=== PATIENT | female | born 1965 | race Hispanic/Latino ===

== ENCOUNTER 2017-10-25 19:09 | Emergency (ER) | payer BC ==
[~2017-10-25] VITALS: Ht 154.9 cm; Wt 84.8 kg
[~2017-10-25 19:09] MED LIST: ASPIR 8181 MG PO; COZAAR100 MG PO; MAXZIDE 75 MG-1 EACH PO
[2017-10-25] MEDS ORDERED: DIATRIZOATE MEGL/DIATRIZOA SOD 30 ML BTL PO ONE (19:56)
[2017-10-25 20:09] LABS: BASOPHILS # (AUTO) 0.1 (0.0-0.1); BASOPHILS % 0.7 % (0.0-1.0); EOSINOPHILS # (AUTO) 0.3 (0.0-0.4); EOSINOPHILS % 3.5 % (0.0-6.0); HEMATOCRIT 39.7 % (34.2-44.1); HEMOGLOBIN 14.3 g/dL (12.0-16.0); LYMPHOCYTES % 24.9 % (18.0-39.1); MEAN CORPUSCULAR HEMOGLOBIN 32.1 pg (28-32); MEAN CORPUSCULAR VOLUME 89.2 fL (81-99); MONOCYTES # (AUTO) 0.4 (0.2-0.8); MONOCYTES % 5.5 % (4.4-11.3); NEUTROPHILS # (AUTO) 5.2 (2.1-6.9); PLATELET COUNT 290 x10e3/uL (140-360); RED BLOOD COUNT 4.45 x10e6/uL (3.6-5.1); RED CELL DISTRIBUTION WIDTH 12.5 % (11.7-14.4)
[2017-10-25 20:10] LABS: BILIRUBIN,URINE NEGATIVE (NEGATIVE); CLARITY,URINE CLEAR (CLEAR); COLOR,URINE YELLOW (YELLOW); KETONES,URINE NEGATIVE (NEGATIVE); LEUKOCYTE ESTERASE ,URINE NEGATIVE (NEGATIVE); NITRITE,URINE NEGATIVE (NEGATIVE); PROTEIN,URINE DIPSTICK NEGATIVE (NEGATIVE); URINE UROBILINOGEN 0.2 mg/dL (0.2 - 1)
[2017-10-25 20:25] LABS: ALANINE AMINOTRANSFERASE 43 IU/L (0-55); ALKALINE PHOSPHATASE 84 IU/L (40-150); AMYLASE 73 U/L (25-125); ANION GAP 14.8 mmol/L (8-16); BLOOD UREA NITROGEN 16 mg/dL (7-26); BUN/CREATININE RATIO 21 (6-25); CALCIUM 10.1 mg/dL (8.4-10.2); CARBON DIOXIDE 27 mmol/L (22-29); CHLORIDE 100 mmol/L (98-107); CREATININE, SERUM 0.75 mg/dL (0.57-1.11); EST GLOMERULAR FILTRATION RATE > 60 ML/MIN (60-); GLUCOSE 129 mg/dL (74-118); LIPASE 36 U/L (8-78); POTASSIUM 3.8 mmol/L (3.5-5.1); SODIUM 138 mmol/L (136-145)
[2017-10-25 20:26] LABS: EPITHELIAL CELLS,URINE FEW /LPF; MUCUS,URINE FEW (RARE); RBC,URINE 0-5 /HPF (0-5); WBC,URINE (MAN) 0-5 /HPF (0-5)
[2017-10-25] MEDS ORDERED: SODIUM CHLORIDE 0.9% 50ML 50 ML ONE (22:27)
[2017-10-25] MEDS ORDERED: IOPAMIDOL 370 MG/ML 200 ML INFUS..BTL INJ ONE (22:27)
--- NOTE | 2017-10-25 22:39 | Diagnostic Imaging Report ---
EXAM: CT Abdomen and Pelvis WITH contrast INDICATION: Abdominal pain, diarrhea COMPARISON: None. TECHNIQUE: Abdomen and pelvis were scanned utilizing a multidetector helical scanner from the lung base to the pubic symphysis after administration of IV contrast. Coronal and sagittal reformations were obtained. Routine protocol was performed. Scan was performed when during portal venous phase. IV CONTRAST: 100 mL of Isovue-370 ORAL CONTRAST: Gastrografin RADIATION DOSE: Total DLP: 775.08 mGy*cm Estimated effective dose: (DLP x 0.015 x size factor) mSv COMPLICATIONS: None FINDINGS: LINES and TUBES: None. LOWER THORAX: Unremarkable HEPATOBILIARY: The liver is diffuse hypodense compared to the spleen, consistent with diffuse hepatic diffuse hepatic steatosis. No focal hepatic lesions. No biliary ductal dilation. GALLBLADDER: No radio-opaque stones or sludge. No wall thickening. SPLEEN: No splenomegaly. PANCREAS: No focal masses or ductal dilatation. ADRENALS: No adrenal nodules KIDNEYS/URETERS: Kidneys enhance symmetrically. No hydronephrosis. No cystic or solid mass lesions. No stones. GI TRACT: No abnormal distention, wall thickening, or evidence of bowel obstruction. There are diverticula within the colon without evidence of diverticulitis. Appendix is normal. PELVIC ORGANS/BLADDER: Findings compatible with supracervical hysterectomy. The ovaries are present and appear normal LYMPH NODES: No lymphadenopathy. VESSELS: There is mild atherosclerotic disease in the aorta and major arterial branches. PERITONEUM / RETROPERITONEUM: No free air or fluid. BONES: Focal degenerative changes at L4-5 level with small posterior disc osteophyte complex. SOFT TISSUES: Unremarkable. IMPRESSION: 1. No evidence of acute intra-abdominal or pelvic abnormality. 2. Diffuse hepatic steatosis. 3. Diverticulosis without evidence of diverticulitis. Signed by: Dr. Raheel Child M.D. on 10/25/2017 10:35 PM
[2017-10-25 22:45] VITALS: BP 100/62
== END 2017-10-25 23:08 | disposition home or self-care (01) ==
LOC: ER 19:09
DX: R10.30 Lower abdominal pain, unspecified (principal); R19.7 Diarrhea, unspecified; I10 Essential (primary) hypertension
CPT/HCPCS: 36415; 74177; 80053; 81001; 82150; 83690; 85025; 99283; Q9967

== ENCOUNTER 2018-08-01 04:24 | Observation (INO) | payer BC ==
[~2018-08-01] VITALS: Ht 154.9 cm; Wt 92.3 kg
--- OUTSIDE RECORDS SUMMARY | 2018-08-01 04:27 | XMS REPORT ---
Author Author [facility] Address Unknown Phone Unavailable Care Team Providers Care Resource Agent Name Role Phone Piotr GREGG Unavailable Unavailable Problems This patient has no known problems. Allergies, Adverse Reactions, Alerts This patient has no known allergies or adverse reactions. Medications This patient has no known medications. Results Test Description Test Time Test Comments Text Results Atomic Results Result Comments CT ABDOMEN/PELVIS W [id number] [place], [place] [address] Patient Name: ANJELICA KARIMI MR #: [id number] : 1965 Age/Sex: 52/F Req #: [id number] Adm Physician: Ordered by: PETAR GREGG MD Report #: [id number] Location: ER Room/Bed: Procedure: [id number] CT/CT ABDOMEN/PELVIS W Exam Date: 10/25/17 Exam Time: 2109 REPORT STATUS: Signed EXAM: CT Abdomen and Pelvis WITH contrast INDICATION: Abdominal pain, diarrhea COMPARISON: None. TECHNIQUE: Abdomen and pelvis were scanned utilizing a multidetector helical scanner from the lung base to the pubic symphysis after administration of IV contrast. Coronal and sagittal reformations were obtained. Routine protocol was performed. Scan was performed when during portal venous phase. IV CONTRAST: 100 mL of Isovue-370 ORAL CONTRAST: Gastrografin RADIATION DOSE: Total DLP: 775.08 mGy*cm Estimated effective dose: (DLP x 0.015 x size factor) mSv COMPLICATIONS: None FINDINGS: LINES and TUBES: None. LOWER THORAX: Unremarkable HEPATOBILIARY: The liver is diffuse hypodense compared to the spleen, consistent with diffuse hepatic diffuse hepatic steatosis. No focal hepatic lesions. No biliary ductal dilation. GALLBLADDER: No radio-opaque stones or sludge. No wall thickening. SPLEEN: No splenomegaly. PANCREAS: No focal masses or ductal dilatation. ADRENALS: No adrenal nodules KIDNEYS/URETERS: Kidneys enhance symmetrically. No hydronephrosis. No cystic or solid mass lesions. No stones. GI TRACT: No abnormal distention, wall thickening, or evidence of bowel obstruction. There are diverticula within the colon without evidence of diverticulitis. Appendix is normal. PELVIC ORGANS/BLADDER: Findings compatible with supracervical hysterectomy. The ovaries are present and appear normal LYMPH NODES: No lymphadenopathy. VESSELS: There is mild atherosclerotic disease in the aorta and major arterial branches. PERITONEUM / RETROPERITONEUM: No free air or fluid. BONES: Focal degenerative changes at L4-5 level with small posterior disc osteophyte c omplex. SOFT TISSUES: Unremarkable. IMPRESSION: 1. No evidence of acute intra-abdominal or pelvic abnormality. 2. Diffuse hepatic steatosis. 3. Diverticulosis without evidence of diverticulitis. Signed by: Dr. Raheel Child M.D. on 10/25/2017 10:35 PM Dictated By: RAHEEL TAI MD 34 Transcribed By: SRIKANTH on 10/25/172234 COPY TO: PETAR GREGG MD
--- NOTE | 2018-08-01 05:29 | Diagnostic Imaging Report ---
EXAMINATION: CHEST SINGLE (PORTABLE) INDICATION: Chest pain COMPARISON: None FINDINGS: AP view TUBES and LINES: None. LUNGS: Lungs are well inflated. Lungs are clear. There is no evidence of pneumonia or pulmonary edema. PLEURA: No pleural effusion or pneumothorax. HEART AND MEDIASTINUM: The cardiomediastinal silhouette is unremarkable. BONES AND SOFT TISSUES: No acute osseous lesion. Soft tissues are unremarkable. UPPER ABDOMEN: No free air under the diaphragm. IMPRESSION: No acute thoracic abnormality. Signed by: DR. Gordon Vargas MD on 08/01/2018 5:25 AM
--- NOTE | 2018-08-01 05:30 | Diagnostic Imaging Report ---
EXAMINATION: Head CT HISTORY: Right upper extremity numbness, left facial numbness COMPARISON: None. TECHNIQUE: Multidetector axial images were obtained without contrast from the foramen magnum to the vertex . The images were reconstructed using brain and bone algorithms. Thin section brain images were reformatted into coronal and sagittal planes. Image quality: Motion/streaking artifact limits the evaluation of the skull base and posterior cranial fossa. Dose modulation, iterative reconstruction, and/or weight based adjustment of the mA/kV was utilized to reduce the radiation dose to as low as reasonably achievable. FINDINGS: Parenchyma: 1. No abnormal densities. 2. No mass or hemorrhage. No CT evidence of acute territorial vascular insult. Extra-axial spaces:No abnormal density. No extra-axial fluid collections Brain volume: Normal for age. Ventricles: No hydrocephalus or displacement. Arteries: No density suggestive of thrombus. Dural sinuses: No abnormal density. Extra-axial spaces: No abnormal density. Foramen magnum: No mass, Chiari malformation, or basilar invagination. Sella: No obvious mass. Paranasal/mastoid sinuses: Imaged portions unremarkable. Skull/Scalp: No lytic or blastic lesions. No fractures. IMPRESSION: Normal head CT. Signed by: Dr. Caridad Mejia M.D. on 08/01/2018 5:27 AM
[2018-08-01] MEDS ORDERED: ASPIRIN 325 MG TAB PO ONE (07:00)
[2018-08-01 07:05] LABS: BASOPHILS # (AUTO) 0.1 (0.0-0.1); BASOPHILS % 0.7 % (0.0-1.0); EOSINOPHILS # (AUTO) 0.3 (0.0-0.4); EOSINOPHILS % 4.4 % (0.0-6.0); HEMATOCRIT 37.3 % (34.2-44.1); HEMOGLOBIN 12.9 g/dL (12.0-16.0); LYMPHOCYTES # (AUTO) 2.1 (1.0-3.2); MEAN CORPUSCULAR HEMOGLOBIN 32.1 pg (28-32); MEAN CORPUSCULAR HGB CONC 34.6 g/dL (31-35); MEAN CORPUSCULAR VOLUME 92.8 fL (81-99); MONOCYTES # (AUTO) 0.4 (0.2-0.8); MONOCYTES % 5.8 % (4.4-11.3); NEUTROPHILS # (AUTO) 4.6 (2.1-6.9); NEUTROPHILS % 60.8 % (38.7-80.0); PLATELET COUNT 241 x10e3/uL (140-360); RED BLOOD COUNT 4.02 x10e6/uL (3.6-5.1); RED CELL DISTRIBUTION WIDTH 12.4 % (11.7-14.4)
[2018-08-01 07:26] LABS: INR 0.94; PARTIAL THROMBOPLASTIN TIME 28.6 seconds (23.8-35.5); PROTHROMBIN TIME 13.4 seconds (11.9-14.5)
[2018-08-01 07:33] LABS: ALANINE AMINOTRANSFERASE 21 IU/L (0-55); ALBUMIN/GLOBULIN RATIO 1.2 (0.8-2.0); ALKALINE PHOSPHATASE 67 IU/L (40-150); ANION GAP 14.5 mmol/L (8-16); BLOOD UREA NITROGEN 16 mg/dL (7-26); BUN/CREATININE RATIO 22 (6-25); CALCIUM 10.1 mg/dL (8.4-10.2); CARBON DIOXIDE 27 mmol/L (22-29); CHLORIDE 104 mmol/L (98-107); CREATINE KINASE 121 IU/L (29-168); CREATININE, SERUM 0.74 mg/dL (0.57-1.11); EST GLOMERULAR FILTRATION RATE > 60 ML/MIN (60-); GLUCOSE 110 mg/dL (74-118); POTASSIUM 3.5 mmol/L (3.5-5.1); SODIUM 142 mmol/L (136-145)
[2018-08-01] MEDS ORDERED: SODIUM CHLORIDE FLUSH 10 ML SYR INJ PRN (09:15)
[2018-08-01] MEDS ORDERED: ONDANSETRON HCL INJ 2 MG/ML VIAL IV PRN (09:15)
[2018-08-01] MEDS: SODIUM CHLORIDE 0.9% 1000ML 1,000 ML IV SCH (13:25)
--- NOTE | 2018-08-01 13:44 | Diagnostic Imaging Report ---
Exam: Brain MRI and Neck MRA without IV contrast History: Left facial numbness, TIA, Comparison studies: Head CT and brain MRI of 05/07/[address] of 08/01/2018. Technique: Brain: Sagittal and axial T2 FS, axial DWI, axial T2*GRE, axial T1 FLAIR and axial coronal T2 FLAIR. Neck MRA: Axial 2-D [id number] with 3-D MIP reformats. Intravenous contrast: None Findings: Scalp: Normal in signal. No masses. Bone marrow: Normal in signal intensity. Brain sulci: Appropriate for age. Ventricles: Normal in size. No hydrocephalus. Extra axial spaces: No mass, no fluid collection. Parenchyma: No mass, hemorrhage or acute ischemia. No chronic cortical vascular infarct. A few small foci of T2 FLAIR hyperintensity in the bifrontal white matter are nonspecific but most compatible with chronic microvascular ischemic changes. Suprasellar region: No abnormalities. Craniocervical junction: Patent foramen magnum. No Chiari malformation. Vessels: Normal flow-voids in the arteries and sinuses. Included paranasal sinuses: Scattered nonspecific inflammatory thickening throughout the sinuses with small fluid levels in the left maxillary sinus and in the right sphenoid sinus which could be correlated for acute sinusitis. Neck MRA: If present, stenosis is calculated utilizing the NASCET method which calculates the degree of stenosis with reference to the normal lumen of the carotid artery distal to the stenosis. Exam limited by pulsation/motion artifacts. Aortic arch: Suboptimally evaluated due to artifacts. No gross abnormalities. Common carotid arteries: Origins are suboptimally evaluated due to artifact. Otherwise, patent bilaterally. No flow signal abnormalities beyond the origins. Carotid bulbs: Patent, no (0%) stenosis bilaterally Internal carotid arteries: Patent and, no flow signal abnormalities. Tortuous bilaterally. Vertebral arteries: Patent, no flow abnormalities. Left vertebral artery is dominant. Incidental findings: Anatomical variant retropharyngeal course of the bilateral common carotid arteries, carotid bifurcation, carotid bulbs and proximal internal carotid arteries. IMPRESSION: Brain MRI: 1. No acute ischemia or other acute intracranial abnormalities. 2. Inflammatory changes in the paranasal sinuses as described. 3. No other significant changes from the prior MRI of 05/07/2015. 4. Minimal chronic microvascular ischemic changes. Cervical MRA: 1. Patent carotid and vertebral arteries without flow limiting stenosis. 2. No (0%) stenosis at the carotid bulbs. 3. 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 Signed by: Dr. Vincent Santana M.D. on 08/01/2018 1:40 PM
[2018-08-01] MEDS: LOSARTAN POTASSIUM 100 MG TAB PO SCH (15:11)
[2018-08-01] MEDS: TRIAMTERENE/HCTZ 37.5-25 MG TAB PO SCH (15:35)
[2018-08-01 15:37] VITALS: BP 155/92
[2018-08-01 16:08] VITALS: BP 155/92
[2018-08-01 20:00] VITALS: BP 142/87
[2018-08-01 20:10] VITALS: BP 142/87
--- NOTE | 2018-08-01 22:54 | Consultation ---
DATE OF CONSULTATION: August 01, 2018 HISTORY OF PRESENT ILLNESS: Ms. Humphrey is a 53-year-old right hand dominant woman with past medical history significant for hypertension, admitted to [facility] on August 01, 2018, with symptoms concerning for a stroke. On the day admission, Ms. Humphrey awoke from sleep at approximately 0400. Immediately, the patient noticed numbness and a sharp pain over the right shoulder and right arm to the hand. Shortly after she awoke, the patient noted a heavy sensation over the right arm. Ms. Humphrey reports she was able to move the arm without difficulty. The patient is unaware as to whether or not she had diminished sensation in the right arm. Upon awakening with the above symptoms, the patient sat up on the side of the bed, awaiting the symptoms to pass. While sitting on the side of the bed, the patient noted pressure over the right side of her chest as well as low back pain. Ms. Humphrey was concern regarding the aforementioned symptoms, and thought she may need to go to the hospital for further evaluation. Therefore, the patient arose from the bed and went to the bathroom. While looking at her face in the mirror, the patient thought the left side of her face appeared swollen. In addition, she thought she noted some drooping over the left side of the face, as well as numbness over the left side of the face. The patient does not report a visual field cut or other disturbance, dysarthria, aphasia, hemiparesis, hemihypesthesia, poor balance, gait impairment, or dizziness. Ms. Humphrey reports possible mild confusion. Ms. Humphrey reports awakening with the headache, which is described as follows: The pain was over the occiput and did not radiate. Ms. Humphrey describes the pain as pressure and rated as a 6/10. The patient does not report photophobia or phonophobia associated with the headache. However, she does report wanting "everything to be quite". Ms. Humphrey does report nausea without vomiting. Lastly, the patient endorses neck pain. Ms. Humphrey does not report a prior history of migraines. She does report her mother would experience severe headaches in the past. Ms. Humphrey proceeded to the emergency center at [facility] for further evaluation of her symptoms. Upon arrival in the emergency center, the patient was afebrile, the blood pressure 171/102 mmHg, and pulse of 70 beats per minute. The patient's neurological examination was significant for a mild left facial droop, sparing the forehead. Otherwise, no focal deficits were noted. A CT of the brain without contrast was performed while the patient was in the emergency center. This study did not reveal evidence of recent large territorial ischemia or hemorrhage. Ms. Humphrey was admitted to [facility] for further evaluation and treatment of her symptoms. REVIEW OF SYSTEMS: Chest pain, nausea, facial weakness and numbness, neck and low back pain, headache. Otherwise, a 12-point review of systems is negative. PAST MEDICAL HISTORY: Hypertension. PAST SURGICAL HISTORY: section x2, abdominoplasty, breast lift, partial hysterectomy. PAST HOSPITALIZATIONS: Surgeries/procedures as listed. FAMILY MEDICAL HISTORY: The patient's paternal and maternal grandparents are . Their medical histories are unknown. Ms. Humphrey's father is . He had diabetes mellitus. The patient's mother is alive. She has hypertension, hyperlipidemia, and diabetes mellitus. Ms. Humphrey has 7 siblings, 5 brothers and 2 sisters, all of whom are alive. One brother has diabetes mellitus. One sister has diabetes mellitus. Otherwise, the remaining siblings are reportedly healthy. The patient has 3 children, 2 sons and 1 daughter, all of whom are alive and healthy. SOCIAL HISTORY: The patient is . She is not employed. Ms. Humphrey does not report current or prior tobacco or recreational drug use. The patient does endorse occasional alcohol use. HOME MEDICATIONS 1. Aspirin 81 mg by mouth daily. 2. Triamterene/hydrochlorothiazide 75 and 50 mg by mouth daily. ALLERGIES: NO KNOWN DRUG ALLERGIES. NO KNOWN FOOD ALLERGIES. NO KNOWN ALLERGIES TO LATEX. NO KNOWN ALLERGIES TO IODINE OR OTHER CONTRAST MATERIALS. PHYSICAL EXAMINATION VITAL SIGNS: Height 61 inches, weight 137 pounds, BMI 35.3 kg/m sq. Blood pressure 155/92 mmHg, pulse 72 beats per minute, respiratory rate 18 breaths per minute. Oxygen saturation 98% on room air. GENERAL: The patient is awake and alert, does not appear distressed. Obese. HEENT: Normocephalic, atraumatic. Pupils are equal, round, and reactive to light. Moist mucous membranes. NECK: Supple. No appreciable thyromegaly. No appreciable carotid bruits. CARDIOVASCULAR: S1 and S2, regular rate rhythm. No murmurs, rubs, or gallops. RESPIRATORY: Clear to auscultation bilaterally. No wheezes, rhonchi, or rales. EXTREMITIES: The skin is warm and dry. No clubbing, cyanosis, or edema. The posterior tibial and dorsalis pedis pulses are 2+ and symmetric. SKIN: No rashes or lesions. NEUROLOGIC Memory/Attention: The patient is awake and alert, oriented to person, place, time, and situation. Cranial Nerves: Cranial nerve I--not tested. Cranial nerve II, III, IV, and --Pupils are equal and round, react briskly to light (from 4 mm to 2 mm). Extraocular movements intact. No nystagmus. Cranial nerve V--sensation to light touch is diminished in the left V3 distribution. Sensation to pinprick is diminished in the left V1 through V3 distributions. Strength of the temporalis and masseter muscles is within normal limits. Cranial nerve VII--the face is asymmetric on the left. All facial movements are symmetric. Strength is within normal limits. Cranial nerve VIII--hearing is intact to finger rub bilaterally. Cranial nerve IX, X--the soft palate elevates equally and symmetrically. Cranial nerve XI--normal strength of the bilateral sternocleidomastoid and trapezius muscles. Cranial nerve XII--the tongue protrudes midline and moves symmetrically from side to side. Strength: Bulk is normal. Strength is 5/5 in the bilateral deltoids, biceps, triceps, wrist flexors and extensors, finger flexors and extensors, ankle intrinsic hand muscles, hip flexors, knee flexors and extensors, ankle dorsiflexion and plantar flexion, and intrinsic foot muscles. Tone is normal. DTRs: Deep tendon reflexes are 2+ and symmetric at the triceps, biceps, brachioradialis, patellas, and Achilles. Plantar responses are flexor bilaterally. Sensation: Sensation is intact to light touch and pinprick in both arms and both legs. Cerebellar: Aoiqij-iqcl-okvcga and heel-saucedo movements are intact without dysmetria or other impairment. Gait: Gait deferred. Speech: Spontaneous speech is normal without appreciable dysarthria or aphasia. Repetition is intact. Involuntary Movements: None. Pronator Drift: None. LABORATORY DATA: A comprehensive metabolic panel was unremarkable. Cardiac enzymes are negative x1. B-type natriuretic peptide is 39.4. The CBC with differential and platelets is unremarkable. Coagulation profile is within normal limits. DIAGNOSTIC STUDIES 1. Electrocardiogram, 08/01/2018: Normal sinus rhythm at 70 beats per minute. Right axis deviation. 2. Chest x-ray, 08/01/2018: No acute thoracic abnormality. 3. CT of the brain without contrast, 08/01/2018: On my review, there is no evidence of recent large territorial ischemia, hemorrhage, mass, or mass effect. Cerebral volume is appropriate for age. There are no findings suspicious for chronic small vessel ischemic disease. 4. Echocardiogram, 08/01/2018: Ejection fraction 55% to 60%. Left ventricular hypertrophy. 5. MRI of the brain without contrast, 08/01/2018: On my review, there is no evidence of recent large territorial ischemia, hemorrhage, mass, or mass effect. There is no evidence of remote vascular insults. Cerebral volumes are appropriate for age. There are few scattered T2/FLAIR hyperintense foci in the supratentorial deep white matter compatible with mild chronic small vessel ischemic disease. 6. MRA of the neck, 08/01/2018: The carotid arteries and vertebral arteries are patent without flow-limiting stenosis. ASSESSMENT AND PLAN: Ms. Humphrey is a 53-year-old right-hand dominant woman with past medical history significant for hypertension, admitted to [facility] on August 01, 2018 with "left facial weakness" and numbness and heaviness over the right arm, and headache. The patient's neurological examination is nonfocal. Other than mild left facial asymmetry, which may be present at baseline. When questioned, the patient's does not report any significant changes in the appearance of the patient's case. Patient's laboratory data and other diagnostic studies have been reviewed and are documented above. Despite the presence of left facial asymmetry, facial movements and strength are symmetric on neurological examination. Based on the report of Mr. Humphrey, it is likely the left facial asymmetry is present at baseline. The symptoms described in the history of present illness has improved, but are still present. However, there is no evidence of a stroke on the MRI of the brain without contrast. Due to the presence of the previously described symptoms for approximately 18 hours, one would expect to find evidence of ischemia on the MRI of the brain without contrast if these symptoms were due to a stroke. Therefore, other etiologies for the patient's symptoms should be considered. Ms. Humphrey does report pain and stiffness in the neck. It is possible, these symptoms described by the patient are due to multiple cervical radiculopathy. Ms. Humphrey endorses a headache with mild phonophobia and nausea, as well as possible confusion. Therefore, it is possible the patient's symptoms represents atypical migraine phenomena. Irregardless of the cause of the patient's symptoms, Ms. Humphrey reports her symptoms are significantly improved. Therefore, no further diagnostic studies or treatments are recommended from the neurology service at present. Ms. Humphrey may be discharged to home. The patient was provided with my contact information in the event she wishes to follow up as an outpatient for further evaluation and treatment. Thank you for this consultation. There are no other recommendations from the neurology service at this time. TIME SPENT: 70 minutes. Job#: [id number] MADIHA HERNANDEZ
[2018-08-02 00:20] VITALS: BP 153/85
[2018-08-02] MEDS: SODIUM CHLORIDE 0.9% 1000ML 1,000 ML IV SCH (01:00)
[2018-08-02 04:10] VITALS: BP 139/94
[2018-08-02 05:32] LABS: BASOPHILS # (AUTO) 0.1 (0.0-0.1); BASOPHILS % 1.1 % (0.0-1.0); EOSINOPHILS # (AUTO) 0.4 (0.0-0.4); EOSINOPHILS % 6.5 % (0.0-6.0); HEMATOCRIT 33.8 % (34.2-44.1); HEMOGLOBIN 11.7 g/dL (12.0-16.0); LYMPHOCYTES # (AUTO) 2.3 (1.0-3.2); LYMPHOCYTES % 40.1 % (18.0-39.1); MEAN CORPUSCULAR HEMOGLOBIN 32.5 pg (28-32); MEAN CORPUSCULAR HGB CONC 34.6 g/dL (31-35); MEAN CORPUSCULAR VOLUME 93.9 fL (81-99); MONOCYTES # (AUTO) 0.3 (0.2-0.8); NEUTROPHILS # (AUTO) 2.6 (2.1-6.9); NEUTROPHILS % 45.9 % (38.7-80.0); PLATELET COUNT 217 x10e3/uL (140-360); RED CELL DISTRIBUTION WIDTH 12.6 % (11.7-14.4)
[2018-08-02 05:52] LABS: ANION GAP 13.5 mmol/L (8-16); BLOOD UREA NITROGEN 19 mg/dL (7-26); BUN/CREATININE RATIO 27 (6-25); CALCIUM 9.1 mg/dL (8.4-10.2); CARBON DIOXIDE 23 mmol/L (22-29); CHLORIDE 105 mmol/L (98-107); EST GLOMERULAR FILTRATION RATE > 60 ML/MIN (60-); GLUCOSE 110 mg/dL (74-118); POTASSIUM 3.5 mmol/L (3.5-5.1); SODIUM 138 mmol/L (136-145)
[2018-08-02 08:00] VITALS: BP 146/87
[2018-08-02] MEDS ORDERED: METOPROLOL TART25 MG PO (08:04)
[2018-08-02] MEDS ORDERED: LIPITOR20 MG PO (08:04)
[2018-08-02 08:27] LABS: CHOL/HDL RATIO 3.6 (3.0-3.6)
--- NOTE | 2018-08-02 08:46 | History and Physical ---
PRIMARY CARE PHYSICIAN: Dr. Kruse CHIEF COMPLAINT: Right arm numbness. HISTORY OF PRESENT ILLNESS: This is a 53-year-old woman with a history of hypertension, who ran out of her antihypertensive medications a few days ago, now developing right arm weakness and heaviness, which persisted for more than a day. Therefore, she came to the hospital. She also admits to left facial numbness and just not feeling well. All of her symptoms have since resolved. PAST MEDICAL HISTORY: Hypertension. PAST SURGICAL HISTORY: and breast reduction, tummy tuck, and partial hysterectomy. ALLERGIES: PER ELECTRONIC MEDICAL RECORD. FAMILY/SOCIAL HISTORY: Patient is . She has 3 children. No alcohol, illicits or cigarettes. MEDICATIONS: Per electronic medical record. REVIEW OF SYSTEMS: Denies any fever, chills, sweats, nausea, vomiting, diarrhea, headache, vision changes, leg pain, back pain. PHYSICAL EXAMINATION VITAL SIGNS: Have been reviewed. GENERAL: A tired-appearing woman resting in bed. HEENT: Anicteric. CARDIOVASCULAR: Normal S1 and S2. LUNGS: Moderate breath sounds. ABDOMEN: Soft, nontender and nondistended. EXTREMITIES: No edema or calf tenderness. NEUROLOGICAL: Alert and oriented times 3. Moving all extremities. SKIN: Dry. PSYCHIATRIC: Normal affect. LABS: Reviewed. MEDICATIONS: Reviewed. ASSESSMENT: This is a 53-year-old woman with: 1. Transient ischemic attack. 2. Hypertension. 3. Hyperlipidemia. 4. Severe obesity in the setting of hypertension. PLAN 1. CT and MRI of the brain and MRA of the neck is negative. Will obtain lipid panel. Treat her with statin. 2. Add beta jody for better blood pressure control. 3. Will need to rewrite all home medications as the patient has ran out of her medications. 4. She needs caloric restriction and weight loss. Will screen for diabetes. 5. Obtain urinalysis. 6. Will use Lovenox and Pepcid. 7. Physical therapy has been consulted. Job#: [id number] RANDALL
[2018-08-02] MEDS ORDERED: ASPIRIN 325 MG TAB EC PO SCH (09:00)
[2018-08-02] MEDS ORDERED: METOPROLOL TARTRATE 25 MG TAB PO SCH (09:00)
[2018-08-02] MEDS: LOSARTAN POTASSIUM 100 MG TAB PO SCH (09:21)
[2018-08-02] MEDS: TRIAMTERENE/HCTZ 37.5-25 MG TAB PO SCH (09:22)
[2018-08-02 10:43] VITALS: BP 146/87
[2018-08-02 12:00] VITALS: BP 174/83
[2018-08-02 12:30] LABS: BACTERIA,URINE MODERATE /HPF; BILIRUBIN,URINE NEGATIVE (NEGATIVE); CLARITY,URINE CLEAR (CLEAR); COLOR,URINE YELLOW (YELLOW); EPITHELIAL CELLS,URINE MODERATE /LPF; KETONES,URINE NEGATIVE (NEGATIVE); LEUKOCYTE ESTERASE ,URINE NEGATIVE (NEGATIVE); NITRITE,URINE NEGATIVE (NEGATIVE); PROTEIN,URINE DIPSTICK NEGATIVE (NEGATIVE); URINE UROBILINOGEN 0.2 mg/dL (0.2 - 1)
[2018-08-02] MEDS ORDERED: ATORVASTATIN 20 MG TAB PO SCH (21:00)
== END 2018-08-02 14:12 | disposition home or self-care (01) ==
LOC: ER 04:24 → ERHOLD 09:21 → INTOOBSV 09:21 → MED/SURG3 14:45
PROVIDERS: ADMIT Internal Medicine; ATTEND Internal Medicine
DX: G45.9 Transient cerebral ischemic attack, unspecified (principal); I10 Essential (primary) hypertension; R29.810 Facial weakness; E78.5 Hyperlipidemia, unspecified; E66.9 Obesity, unspecified; Z68.38 Body mass index [BMI] 38.0-38.9, adult
CPT/HCPCS: 36415 ×2; 70450; 70547; 70551; 71045; 80048; 80053; 80061; 81001; 82550; 82553; 83036; 83880; 84443; 84484 ×2; 85025 ×2; 85610; 85730; 93005; 93306; 97161; 99284; G0378 ×2; J7030 ×2

== ENCOUNTER → 2019-05-07 | Outpatient (CLI) | payer BC ==
[~2019-05-07] MED LIST changes: +LIPITOR20 MG PO; +METOPROLOL TART25 MG PO
--- NOTE | 2019-05-11 09:41 | Diagnostic Imaging Report ---
#[id number] - MGSCRBIL #BILATERAL DIGITAL SCREENING MAMMOGRAM WITH CAD: 05/07/2019 CLINICAL: Routine screening. Comparison is made to exams dated: 01/28/2016 mammogram and 01/02/2015 mammogram - [facility]. Current study contains 5 films. There are scattered fibroglandular elements in both breasts. Current study was also evaluated with a Computer Aided Detection (CAD) system. There are stable benign calcifications in both breasts. There also are stable benign intramammary nodes in the left breast. Additionally there is a biopsy clip in the upper right breast. No significant masses, calcifications, or other findings are seen in either breast. IMPRESSION: BENIGN There is no mammographic evidence of malignancy. A 1 year screening mammogram is recommended. The patient will be notified by letter of the results. ISRAEL ARVIZU M.D. ct/penrad:05/10/2019 09:01:11 Ore Trimmer: Tamera JACOBS([place]utu)(M), [facility] letter sent: Normal Exam Mammogram BI-RADS: 2 Benign
== END ==
LOC: MAMMO 10:36
PROVIDERS: ATTEND Family Medicine
DX: Z12.31 Encounter for screening mammogram for malignant neoplasm of breast (principal)
CPT/HCPCS: 77067

== ENCOUNTER 2019-05-08 18:32 | Emergency (ER) | payer BC ==
[~2019-05-08] VITALS: Ht 154.9 cm; Wt 77.1 kg
--- NOTE | 2019-05-08 20:31 | Diagnostic Imaging Report ---
EXAMINATION: CXR 2 VIEW - HOPD INDICATION: Elevated blood pressure COMPARISON: August 01, 2018 FINDINGS: TUBES and LINES: None. LUNGS: Lungs are well inflated. Lungs are clear. There is no evidence of pneumonia or pulmonary edema. PLEURA: No pleural effusion or pneumothorax. HEART AND MEDIASTINUM: The cardiomediastinal silhouette is unremarkable. BONES AND SOFT TISSUES: No acute osseous lesion. Soft tissues are unremarkable. UPPER ABDOMEN: No free air under the diaphragm. IMPRESSION: No acute thoracic abnormality. Signed by: Dr. Alec Cristina M.D. on 05/08/2019 8:28 PM
--- NOTE | 2019-05-08 20:43 | Diagnostic Imaging Report ---
EXAMINATION: Head CT without contrast. HISTORY:Headache, high blood pressure, left upper extremity numbness. COMPARISON:CT brain from 08/01/2018 and MRI brain from 08/01/2018. TECHNIQUE: Multidetector axial images were obtained from the foramen magnum to the vertex without contrast. The images were reconstructed using brain and bone algorithms. Thin section brain images were reformatted into coronal and sagittal planes. Dose modulation, iterative reconstruction, and/or weight based adjustment of the mA/kV was utilized to reduce the radiation dose to as low as reasonably achievable. Intravenous contrast: None IMAGE QUALITY: Acceptable. FINDINGS: Skull/scalp: No lytic or blastic. lesions. No surgical changes. Parenchyma: Minimal supratentorial white matter microvascular ischemic changes that was seen in prior MRI brain from 08/01/2018 is beyond the resolution of CT. No acute hemorrhage, mass or acute major vascular territorial infarct. Arteries: No density suggestive of thrombosis. Dural sinuses: No abnormal density suggestive of thrombosis. Ventricles: No hydrocephalus or displacement. Extra-axial spaces: No abnormal density. Brain volume: Normal for age. Craniocervical junction: No mass, Chiari malformation, or basilar invagination. Sella: No mass. Paranasal/mastoid sinuses: Imaged portions unremarkable. IMPRESSION: No acute intracranial abnormality. Signed by: Dr. Kenzie Vazquez M.D. on 05/08/2019 8:40 PM
== END 2019-05-08 21:15 | disposition home or self-care (01) ==
LOC: FSED 18:32
DX: R20.2 Paresthesia of skin (principal); I10 Essential (primary) hypertension; R73.9 Hyperglycemia, unspecified
CPT/HCPCS: 70450; 71046; 80048; 80076; 81003; 85025; 93005; 99284

== ENCOUNTER → 2020-01-21 | Outpatient (CLI) | payer BC ==
--- NOTE | 2020-01-21 16:05 | Diagnostic Imaging Report ---
Hepatobiliary Scan with Gallbladder Ejection Fraction Clinical information: Acute epigastric abdominal pain Report: Following intravenous administration of 6.6 millicuries of Tc-99m mebrofenin, dynamic images of the abdomen in the anterior projection were obtained through 20 minutes. Sincalide (CCK analog) 1.7 micrograms was administered intravenously over 30 minutes with additional imaging for determination of gallbladder ejection fraction. Perfusion to the liver is normal. Extraction of tracer from the blood pool by the liver parenchyma is normal. Tracer is seen promptly within the biliary tract. The gallbladder begins to fill by 9 minutes post-injection of tracer and fills adequately. Tracer is seen in the small bowel during the sincalide infusion. The gallbladder ejection fraction with administration of sincalide is 59% (normal greater than 40%). Impression: 1. Filling of the gallbladder excludes the diagnosis of acute cystic duct obstruction/acute cholecystitis. 2. Normal gallbladder ejection fraction of 59% does not support the clinical diagnosis of chronic cholecystitis/gallbladder dyskinesia. Signed by: Dr. Tamera Middleton M.D. on 01/21/2020 4:02 PM
== END ==
LOC: NM 10:31
PROVIDERS: ATTEND Internal Medicine Gastroenterology
DX: R10.13 Epigastric pain (principal)
CPT/HCPCS: 78227; A9537

== ENCOUNTER → 2020-05-26 | Outpatient (CLI) | payer BC | LOC: MAMMO 11:29 | PROVIDERS: ATTEND Family Medicine | DX: Z12.31 Encounter for screening mammogram for malignant neoplasm of breast (principal) | CPT/HCPCS: 77067 ==

== ENCOUNTER 2020-11-10 18:04 | Observation (INO) | payer BC ==
[~2020-11-10] VITALS: Ht 154.9 cm; Wt 86.2 kg
[2020-11-10 18:58] LABS: BASOPHILS # (AUTO) 0.1 (0.0-0.1); BASOPHILS % 1.1 % (0.0-1.0); EOSINOPHILS # (AUTO) 0.2 (0.0-0.4); EOSINOPHILS % 2.3 % (0.0-6.0); HEMATOCRIT 41.4 % (34.2-44.1); HEMOGLOBIN 14.6 g/dL (12.0-16.0); LYMPHOCYTES # (AUTO) 2.5 (1.0-3.2); MEAN CORPUSCULAR HEMOGLOBIN 31.8 pg (28-32); MEAN CORPUSCULAR HGB CONC 35.3 g/dL (31-35); MEAN CORPUSCULAR VOLUME 90.2 fL (81-99); MONOCYTES # (AUTO) 0.4 (0.2-0.8); MONOCYTES % 4.9 % (4.4-11.3); NEUTROPHILS # (AUTO) 4.8 (2.1-6.9); NEUTROPHILS % 60.4 % (38.7-80.0); PLATELET COUNT 300 x10e3/uL (140-360); RED BLOOD COUNT 4.59 x10e6/uL (3.6-5.1); RED CELL DISTRIBUTION WIDTH 12.6 % (11.7-14.4)
[2020-11-10 19:17] LABS: ALANINE AMINOTRANSFERASE 52 IU/L (0-55); ALBUMIN 4.5 g/dL (3.5-5.0); ALBUMIN/GLOBULIN RATIO 1.1 (0.8-2.0); ALKALINE PHOSPHATASE 72 IU/L (40-150); BLOOD UREA NITROGEN 20 mg/dL (7-26); BUN/CREATININE RATIO 27 (6-25); CALCIUM 10.4 mg/dL (8.4-10.2); CARBON DIOXIDE 27 mmol/L (22-29); CHLORIDE 99 mmol/L (98-107); CREATINE KINASE 122 IU/L (29-168); CREATININE, SERUM 0.75 mg/dL (0.57-1.11); EST GLOMERULAR FILTRATION RATE > 60 ML/MIN (60-); GLUCOSE 136 mg/dL (74-118); SODIUM 140 mmol/L (136-145)
[2020-11-10] MEDS ORDERED: SODIUM CHLORIDE 0.9% 50ML 50 ML ONE (19:50)
[2020-11-10] MEDS ORDERED: IOPAMIDOL 370 MG/ML 200 ML INFUS..BTL INJ ONE (19:50)
[2020-11-10] MEDS ORDERED: ASPIRIN 81 MG CHEW TAB PO ONE (20:30)
[2020-11-10] MEDS ORDERED: POTASSIUM CHLORIDE 20 MEQ TAB CR PO STA (20:51)
[2020-11-10] MEDS ORDERED: POTASSIUM CHLORIDE 20MEQ/100ML 100 ML IV ONE (21:00)
[2020-11-11] VITALS (8 sets, daily range): BP systolic 122–157; BP diastolic 77–100
[2020-11-11] MEDS ORDERED: HYDROCHLOROTH12.5 MG PO (02:06)
[2020-11-11] MEDS ORDERED: METOPROLOL TART50 MG PO (02:06)
[2020-11-11] MEDS ORDERED: FAMOTIDINE20 MG PO (02:06)
[2020-11-11] MEDS ORDERED: LOSARTAN POTAS100 MG PO (02:06)
[2020-11-11] MEDS ORDERED: PROTONIX20 MG PO (02:06)
[2020-11-11] MEDS ORDERED: NIFEDIPINE ER30 M1 PO (02:06)
[2020-11-11] MEDS ORDERED: METFORMIN HCL500 MG PO (02:06)
[2020-11-11 02:55] LABS: CHOL/HDL RATIO 3.9 (3.0-3.6)
[2020-11-11 03:02] LABS: CREATINE KINASE MB 1.3 ng/mL (0-5.0)
[2020-11-11] MEDS ORDERED: REGADENOSON 0.4 MG/5 ML SYR IV ONE (13:14)
[2020-11-11] MEDS: METOPROLOL TARTRATE 50 MG TAB PO SCH (17:09)
[2020-11-11] MEDS: FAMOTIDINE 20 MG TAB PO SCH (17:09)
[2020-11-11] MEDS: PANTOPRAZOLE SOD 40 MG TABEC PO SCH (17:09)
[2020-11-11] MEDS: LOSARTAN POTASSIUM 100 MG TAB PO SCH (17:09)
[2020-11-11] MEDS: HYDROCHLOROTHIAZIDE 25 MG TAB PO SCH (17:09)
[2020-11-11] MEDS: NIFEDIPINE CR 30 MG TAB PO SCH (17:10)
[2020-11-11] MEDS: SODIUM CHLORIDE 0.9% 1000ML 1,000 ML IV SCH (19:22)
[2020-11-12 00:44] VITALS: BP 138/89
[2020-11-12] MEDS ORDERED: HYDRALAZINE HCL 20 MG/ML VIAL IV PRN (01:30)
[2020-11-12 05:54] VITALS: BP 117/86
[2020-11-12 06:09] LABS: BASOPHILS # (AUTO) 0.1 (0.0-0.1); BASOPHILS % 0.9 % (0.0-1.0); EOSINOPHILS # (AUTO) 0.2 (0.0-0.4); EOSINOPHILS % 4.2 % (0.0-6.0); HEMATOCRIT 38.1 % (34.2-44.1); LYMPHOCYTES # (AUTO) 2.3 (1.0-3.2); LYMPHOCYTES % 40.8 % (18.0-39.1); MEAN CORPUSCULAR HEMOGLOBIN 31.3 pg (28-32); MEAN CORPUSCULAR HGB CONC 34.1 g/dL (31-35); MEAN CORPUSCULAR VOLUME 91.6 fL (81-99); MONOCYTES # (AUTO) 0.4 (0.2-0.8); MONOCYTES % 7.6 % (4.4-11.3); NEUTROPHILS # (AUTO) 2.6 (2.1-6.9); NEUTROPHILS % 46.3 % (38.7-80.0); PLATELET COUNT 271 x10e3/uL (140-360); RED BLOOD COUNT 4.16 x10e6/uL (3.6-5.1); RED CELL DISTRIBUTION WIDTH 12.9 % (11.7-14.4)
[2020-11-12 06:27] LABS: INR 0.93
[2020-11-12 06:33] LABS: ALANINE AMINOTRANSFERASE 42 IU/L (0-55); ALBUMIN 3.7 g/dL (3.5-5.0); ALBUMIN/GLOBULIN RATIO 1.2 (0.8-2.0); ALKALINE PHOSPHATASE 60 IU/L (40-150); ANION GAP 13.3 mmol/L (8-16); BLOOD UREA NITROGEN 19 mg/dL (7-26); BUN/CREATININE RATIO 27 (6-25); CARBON DIOXIDE 27 mmol/L (22-29); CHLORIDE 103 mmol/L (98-107); EST GLOMERULAR FILTRATION RATE > 60 ML/MIN (60-); GLUCOSE 123 mg/dL (74-118); POTASSIUM 3.3 mmol/L (3.5-5.1); SODIUM 140 mmol/L (136-145)
[2020-11-12 08:15] VITALS: BP 137/79
[2020-11-12] MEDS: PANTOPRAZOLE SOD 40 MG TABEC PO SCH (09:00)
[2020-11-12] MEDS: METOPROLOL TARTRATE 50 MG TAB PO SCH (09:00)
[2020-11-12] MEDS: LOSARTAN POTASSIUM 100 MG TAB PO SCH (09:00)
[2020-11-12] MEDS: HYDROCHLOROTHIAZIDE 25 MG TAB PO SCH (09:00)
[2020-11-12] MEDS: NIFEDIPINE CR 30 MG TAB PO SCH (09:00)
[2020-11-12] MEDS: FAMOTIDINE 20 MG TAB PO SCH (09:00)
[2020-11-12 09:09] VITALS: BP 137/79
[2020-11-12] MEDS ORDERED: MIDAZOLAM HCL 2 MG/2 ML VIAL ONE (10:49)
[2020-11-12] MEDS ORDERED: FENTANYL CITRATE/PF 100MCG/2 ML INJ ONE (10:49)
[2020-11-12] MEDS ORDERED: LIDOCAINE HCL 2% LOCAL 20 ML VIAL ONE (10:50)
[2020-11-12] MEDS ORDERED: IOPAMIDOL 370 MG/ML 200 ML INFUS..BTL INJ ONE (10:50)
[2020-11-12] MEDS ORDERED: HEPARIN SOD/SOD CHLORIDE 2,000 ML ONE (10:50)
[2020-11-12] MEDS ORDERED: SODIUM CHLORIDE 0.9% 1000ML 1,000 ML ONE (10:50)
[2020-11-12] MEDS ORDERED: SODIUM CHLORIDE 0.9% 1000ML 1,000 ML IV SCH (13:00)
[2020-11-12] MEDS: SODIUM CHLORIDE 0.9% 1000ML 1,000 ML IV SCH (13:15)
[2020-11-12] MEDS ORDERED: METOPROLOL SUCC50 MG PO (15:37)
[2020-11-12 17:10] VITALS: BP 127/87
== END 2020-11-12 18:27 | disposition home or self-care (01) ==
LOC: ER 18:43 → ERHOLD 20:43 → MED/SURG2 23:28
PROVIDERS: ADMIT Internal Medicine; ATTEND Internal Medicine
DX: R07.9 Chest pain, unspecified (principal); E11.9 Type 2 diabetes mellitus without complications; E78.5 Hyperlipidemia, unspecified; E78.00 Pure hypercholesterolemia, unspecified; Z86.16 Personal history of COVID-19; Z20.822 Contact with and (suspected) exposure to COVID-19; I10 Essential (primary) hypertension
CPT/HCPCS: 36415 ×3; 71260; 78452; 80053 ×2; 80061; 82270; 82550 ×2; 82553 ×2; 82948 ×2; 84443; 84484 ×2; 84702; 85025 ×2; 85379; 85610; 93005 ×2; 93017; 93306; 93458; 99284; A9502; C1760; C1766; C1769; C1887; G0378 ×3; J2001; J2250; J2785; J3010; J3480; J7030 ×2; Q9967 ×2; S0164; U0002; 99152; 99153

== ENCOUNTER → 2021-08-12 | Outpatient (CLI) | payer BC ==
[~2021-08-12] MED LIST changes: +FAMOTIDINE20 MG PO; +HYDROCHLOROTH12.5 MG PO; +LOSARTAN POTAS100 MG PO; +METFORMIN HCL500 MG PO; +METOPROLOL SUCC50 MG PO; +METOPROLOL TART50 MG PO; +NIFEDIPINE ER30 M1 PO; +PROTONIX20 MG PO
== END ==
LOC: MRI 14:33
PROVIDERS: ATTEND Specialist
DX: M25.562 Pain in left knee (principal); M25.462 Effusion, left knee

== ENCOUNTER 2022-04-02 01:05 | Emergency (ER) | payer BC ==
[~2022-04-02] VITALS: Ht 154.9 cm; Wt 86.2 kg
== END 2022-04-02 03:50 | disposition home or self-care (01) ==
LOC: FSED 01:44
DX: R20.2 Paresthesia of skin (principal); R07.89 Other chest pain; R53.1 Weakness; R42 Dizziness and giddiness; I10 Essential (primary) hypertension; E11.65 Type 2 diabetes mellitus with hyperglycemia; Z86.16 Personal history of COVID-19
CPT/HCPCS: 70450; 71046; 93005; 99284

== ENCOUNTER → 2022-06-04 | Outpatient (CLI) | payer BC | LOC: MAMMO 09:20 | PROVIDERS: ATTEND Family Medicine | DX: Z12.31 Encounter for screening mammogram for malignant neoplasm of breast (principal) | CPT/HCPCS: 77067 ==

== ENCOUNTER → 2024-07-30 | Outpatient (REF) | payer OTHER | LOC: MAMMO 13:47 | PROVIDERS: ATTEND Family Medicine | DX: Z12.31 Encounter for screening mammogram for malignant neoplasm of breast (principal) | CPT/HCPCS: 77067 ==